=== PATIENT | female | born 1975 | race Caucasian/White ===

== ENCOUNTER 2023-02-23 16:02 | Outpatient (RCR) | payer OTHER, SELFPAY | END 2023-02-23 23:59 | disposition home or self-care (01) | LOC: RPT 16:02 | PROVIDERS: ATTENDING PHYSICIAN Student in an Organized Health Care Education/Training Program | DX: S06.0X0D Concussion without loss of consciousness, subsequent encounter (principal); H81.10 Benign paroxysmal vertigo, unspecified ear; M54.2 Cervicalgia; G89.11 Acute pain due to trauma | CPT/HCPCS: 97112; 97163 ==

== ENCOUNTER 2023-03-29 14:49 | Outpatient (RCR) | payer OTHER, SELFPAY | END 2023-03-29 23:59 | disposition home or self-care (01) | LOC: RPT 14:49 | PROVIDERS: ATTENDING PHYSICIAN Student in an Organized Health Care Education/Training Program | DX: S06.0X0D Concussion without loss of consciousness, subsequent encounter (principal); H81.10 Benign paroxysmal vertigo, unspecified ear; M54.2 Cervicalgia; G89.11 Acute pain due to trauma; Z73.6 Limitation of activities due to disability | CPT/HCPCS: 97010; 97012; 97110; 97140 ==

== ENCOUNTER 2023-04-26 19:18 | Outpatient (RCR) | payer OTHER, BC, SELFPAY | END 2023-04-26 23:59 | disposition home or self-care (01) | LOC: RPT 19:18 | PROVIDERS: ATTENDING PHYSICIAN Student in an Organized Health Care Education/Training Program | DX: S06.0X0D Concussion without loss of consciousness, subsequent encounter (principal); H81.10 Benign paroxysmal vertigo, unspecified ear; M54.2 Cervicalgia; G89.11 Acute pain due to trauma; Z73.6 Limitation of activities due to disability; R26.2 Difficulty in walking, not elsewhere classified; M62.81 Muscle weakness (generalized); R51.9 Headache, unspecified; V49.40XD Driver injured in collision with unspecified motor vehicles in traffic accident, subsequent encounter | CPT/HCPCS: 97010; 97110; 97140 ==

== ENCOUNTER 2023-05-17 18:14 | Outpatient (RCR) | payer OTHER, BC, SELFPAY | END 2023-05-17 23:59 | disposition home or self-care (01) | LOC: RPT 18:14 | PROVIDERS: ATTENDING PHYSICIAN Student in an Organized Health Care Education/Training Program | DX: S06.0X0D Concussion without loss of consciousness, subsequent encounter (principal); H81.10 Benign paroxysmal vertigo, unspecified ear; M54.2 Cervicalgia; G89.11 Acute pain due to trauma; Z73.6 Limitation of activities due to disability; R26.2 Difficulty in walking, not elsewhere classified; M62.81 Muscle weakness (generalized) | CPT/HCPCS: 97110; 97140 ==

== ENCOUNTER 2023-05-31 18:51 | Outpatient (RCR) | payer OTHER, BC, SELFPAY | END 2023-06-01 12:51 | disposition home or self-care (01) | LOC: RPT 18:51 | PROVIDERS: ATTENDING PHYSICIAN Student in an Organized Health Care Education/Training Program | DX: S06.0X0D Concussion without loss of consciousness, subsequent encounter (principal); H81.10 Benign paroxysmal vertigo, unspecified ear; M54.2 Cervicalgia; G89.11 Acute pain due to trauma; Z73.6 Limitation of activities due to disability | CPT/HCPCS: 97110; 97140 ==

== ENCOUNTER → 2024-01-15 10:25 | Outpatient (REF) | payer BC, SELFPAY | LOC: WDC 10:25 | PROVIDERS: ATTENDING PHYSICIAN Student in an Organized Health Care Education/Training Program | DX: N64.4 Mastodynia (principal) | CPT/HCPCS: 76642; 77062; 77066 ==

== ENCOUNTER 2025-02-14 13:35 | Emergency (ER) | payer BC, SELFPAY ==
[2025-02-14 13:37] VITALS: BP 137/94
[2025-02-14 14:06] LABS: Hematocrit 37.5 % (37.0-47.0); Hemoglobin 12.5 g/dL (12.0-16.0); Mean Corp Hgb Conc. 33.3 g/dL (33.0-37.0); Mean Corpuscular Volume 87.6 fL (81.0-99.0); Nucleated Red Blood Cells % 0 %; Platelet Count 368 10^3/uL (130-400); Red Cell Dist. Width 13.0 % (11.5-14.5)
[2025-02-14 14:26] LABS: ALT (SGPT) 163 U/L (0-35); AST (SGOT) 131 U/L (14-36); Albumin 4.2 g/dl (3.5-5.0); Alkaline Phosphatase 122 U/L (38-126); Blood Urea Nitrogen 11 mg/dl (7-17); Calcium 9.2 mg/dl (8.4-10.2); Carbon Dioxide 25 mmol/L (22-30); Chloride 105 mmol/L (98-107); Glucose 95 mg/dl (70-99); Lipase 134 U/L (23-300); Potassium 4.4 mmol/L (3.5-5.1); Sodium 135 mmol/L (135-145); Total Protein 7.4 g/dl (6.3-8.2); eGFR > 60.00
[2025-02-14 14:27] LABS: Troponin I 0.016 ng/ml
--- NOTE | 2025-02-14 16:54 | ED.GENMED ---
History of Present Illness
General
Chief Complaint: Abdominal Pain
Source: patient
Exam Limitations: none
Time Seen by Provider: 02/14/25 16:36
Nursing documentation reviewed up to this point in time: agreed with
History of Present Illness
History of Present Illness:
Patient to emergency department for evaluation of upper abdominal pain. She states the pain started approximately 1 month ago. Pain is intermittent. She states she has had 2 episodes in the last week, each episode lasting approximately 1 hour.
She describes pain as sharp. Is located in the upper abdomen and radiates down to lower abdomen. She denies any nausea vomiting or diarrhea. She denies any fever or chills. She was seen by her PCP for routine physical and discussed this pain.
She was advised to take Prilosec. She states she took a dose or 2 without improvement. Brought self to the emergency department for evaluation.
Past History
Past History
ED Past Medical History: Psychiatric
Review of Systems
Review of Systems
Allergies reviewed?: Yes
All Other Systems: ROS reviewed and negative except as documented in HPI and ROS
Constitutional: Reports no symptoms
EENT: Reports no symptoms
Respiratory: Reports no symptoms
Cardiac: Reports no symptoms
ABD/GI: Reports abdominal pain (Upper abdominal pain)
: Reports no symptoms
Musculoskeletal: Reports no symptoms
Skin: Reports no symptoms
Neurological: Reports no symptoms
Psychiatric: Reports no symptoms
Phy Exam
General Physical Exam
General Presentation: well appearing and no apparent distress
General age: appears stated age
General Skin: warm and dry
General Habitus: normal
General Mental: alert
Cardiovascular Exam
Cardiovascular Exam: regular rate/rhythm
Gastrointestinal Exam
Gastrointestinal Exam: normal bowel sounds, soft, no organomegaly, no pulsatile mass, non distended and no cva tenderness
Palpation: left upper quadrant: Moderate tenderness, left lower quadrant: No tenderness, right upper quadrant: Moderate tenderness and right lower quadrant: No tenderness
Musculoskeletal Exam
Musculoskeletal Exam: full ROM and neuro vasc intact
Skin Exam
Skin Exam: normal color, warm/dry and no rash
Psychiatric Exam
Psychiatric Exam: normal mood/affect
Course
Orders/Labs/Results
Orders:
Orders
02/14/25 13:39
Electrocardiogram (*1) Urgent
Reason for Study: Abdominal Pain
EKG- Treatment ONCE
02/14/25 13:55
Complete Blood Count/With Diff Urgent
Comprehensive Metabolic Panel Urgent
HCG, Serum Qualitative Screen Urgent
Comment: ADD ON
Lipase Urgent
Troponin I Urgent
02/14/25 16:32
Add On- LAB Urgent
Tests Added?: HCG qual
02/14/25 16:53
US Abdomen Complete/Upper Urgent
Comment:
Reason For Exam: upper abd pain, elevated LFT'a
02/14/25 18:23
Meclizine [Antivert] 25 mg PO NOW STA
Ondansetron Orally Disint [Zofran Odt (Orally Disintegrating)] 4 mg PO NOW STA
02/14/25 19:03
Hepatitis A IgM Antibody Urgent
Hepatitis B Core Ab, IgM Urgent
Hepatitis B Surface Antibody Urgent
Hepatitis B Surface Antigen Urgent
Hepatitis C Antibody Urgent
Abnormal Lab Results
02/14/25
13:55
Abs Immat Gran (auto) 0.1 H 10^3/uL
(0-0.05)
Absolute Neuts (auto) 6.6 H 10^3/uL
(1.4-6.5)
Absolute Monos (auto) 0.8 H 10^3/uL
(0.1-0.6)
Lymphocytes % 19.3 L %
(20.5-51.1)
AST 131 H U/L
(14-36)
ALT 163 H U/L
(0-35)
02/14/25 13:55
02/14/25 13:55
Vital Signs
Initial and Last Documented VS:
Initial Vital Signs
Temp Pulse Resp BP Pulse Ox
98.2 F 95 16 137/94 98
02/14/25 13:37 02/14/25 13:37 02/14/25 13:37 02/14/25 13:37 02/14/25 13:37
Last Documented Vital Signs
Temp Pulse Resp BP Pulse Ox
98.2 F 81 16 137/94 99
02/14/25 13:37 02/14/25 19:13 02/14/25 19:13 02/14/25 13:37 02/14/25 19:13
*Radiology
Radiology exam reviewed: radiology read reviewed
*Pulse Oximetry
SaO2: 98
Oxygen Mode of Delivery: Room air
Patient hypoxic: no
*Critical Care Note
Total Time (30-74mins, 75-104mins- exclusive of procedures): Not Applicable
Update Note
Update Note:
Patient to emergency department for evaluation of upper abdominal pain. She states that symptoms started approximately 1 month ago and symptoms are intermittent. She states over the last week she has had 2 episodes of sharp upper abdominal pain.
No associated nausea vomiting or diarrhea. There is no aggravating or alleviating factors. Vital signs are stable she remains afebrile. Labs reviewed. WBC is normal. AST and ALT mildly elevated at 131/163. She was sent for an ultrasound of her
upper abdomen. Results of coarsened hepatic echotexture. She has cholelithiasis with the wall thickness at top normal. Discussed findings with her. Will recommend that she follow-up with general surgery for further evaluation of her gallbladder.
She was also given the number for GI at her request. She is discharged home and she will follow-up as discussed. She was given instructions on signs and symptoms to return to the emergency department and she is agreeable to this plan.
ED Attending Note
-
Portions of this chart may have been created with voice recognition software.� Occasional wrong word or��sound alike� substitutions may have occurred due to the inherent limitations of voice recognition software.
Discharge Plan
Departure
Patient Disposition: Home (Routine Discharge)
Date of Disposition: 02/14/25
Time of Disposition: 19:02
Patient with high blood pressure during this ER visit?: No
Condition: Good
Covid-19: Not Applicable
Discharge Problem:
Abdominal pain
Instructions: Abdominal Pain
Prescriptions:
New
pantoprazole 40 mg tablet,delayed release (DR/EC)
40 mg PO DAILY Qty: 21 0RF
No Action
citalopram 20 MG tablet
40 mg PO DAILY
albuterol sulfate 1 PUFF HFA aerosol inhaler
1 puff inhalation R [id number] PRN (Reason: ASTHMA)
Referrals:
Gina Buenrostro PA-C [Family Provider, Family Practice]
Edinson Barfield MD [Active, Surgical] - Call in 1-3 days for appt
Jose Vallejo DO [Active, Gastroenterology] - Call in 1-3 days for appt
Activity Restrictions/Additional Instructions:
Follow-up with your family doctor. Return to the emergency department immediately for any changes in/worsening of your symptoms. As we discussed hepatitis panel was ordered. Results are still pending. You will be notified of any positive
results. Please follow-up with gastroenterology for your abdominal symptoms and general surgery for further evaluation of your gallbladder.
Interventions
Interventions:
*General Assessment Last Done: 02/14/25 13:38
*Neglect/Abuse Screening Last Done: 02/14/25 13:38
*ED COVID-19 Vaccine History Last Done: 02/14/25 13:38
*ED Influenza Vaccine History Last Done: 02/14/25 13:38
[facility] Risk Assessment Tool Last Done: 02/14/25 17:18
*Risk Screen - Suicide (C-SSRS) Last Done: 02/14/25 13:38
*Nursing Disposition Last Done: 02/14/25 19:13
VD-Ngjfsc-Hpvibcziao Assessment Last Done: 02/14/25 17:16
Discharge Date and Time
Discharge Date/Time: 02/14/25 19:14
Print Language: DIVEHI
[2025-02-14 17:01] LABS: HCG, Serum Qualitative Screen Negative
[2025-02-14] MEDS: ZOFRAN ODT (ORALLY DISINTEGRATING) 4 MG PO (18:44)
[2025-02-14] MEDS: ANTIVERT 25 MG PO (18:44)
[2025-02-15 05:01] LABS: Hepatitis B Surface Antigen Negative (Negative)
[2025-02-15 05:19] LABS: Hepatitis C Antibody Negative (Negative)
== END 2025-02-14 19:14 | disposition home or self-care (01) ==
LOC: EMR 13:35
PROVIDERS: Emergency Medicine; Nurse Practitioner; EMERGENCY PHYSICIAN Student in an Organized Health Care Education/Training Program; FAMILY PHYSICIAN Student in an Organized Health Care Education/Training Program
DX: R10.10 Upper abdominal pain, unspecified (principal); K80.20 Calculus of gallbladder without cholecystitis without obstruction
CPT/HCPCS: 99284; 76700; 80053; 83690; 84484; 84703; 85025; 86705; 86706; 86709; 86803; 87340; 93005

== ENCOUNTER 2025-02-25 08:19 | Outpatient (RCR) | payer BC, SELFPAY | END 2025-02-25 23:59 | disposition home or self-care (01) | LOC: RPT 08:19 | PROVIDERS: ATTENDING PHYSICIAN Physician Assistant Medical | DX: R42 Dizziness and giddiness (principal); Z73.6 Limitation of activities due to disability | CPT/HCPCS: 97112; 97161 ==